=== PATIENT | female | born 1990 | race Caucasian/White ===

== ENCOUNTER 2017-02-18 09:13 | Emergency (ER) | payer MEDICAID, OTHER ==
[~2017-02-18] VITALS: Ht 170.2 cm; Wt 77.0 kg
[~2017-02-18 09:13] MED LIST: GUAI600 PO
[2017-02-18 09:21] VITALS: BP 117/65; PULSE 84; RESP 16; TEMP 98.1; O2SAT 98
[2017-02-18] MEDS ORDERED: MAGICADU2 SWISH-SWAL (09:58)
--- NOTE | 2017-02-18 10:00 | PD ---
HPI Chief Complaint: ENT Complaint Time Seen by Provider: 09:40 Travel History International Travel<30 days: No Contact w/Intl Traveler<30days: No Traveled to known affect area: No History of Present Illness HPI The patient was seen and examined in the presence of the nurse. Patient complains of sore throat and ear pain and runny nose and congestion. No fever. Symptoms severity is mild to moderate PFSH Past Medical History Medical History: Denies Significant Hx Diabetes: No Diminished Hearing: No Immunizations Current: Yes Tetanus Vaccination: > 5 Years Influenza Vaccination: No ?: Not Past Surgical History Other Surgery: Yes (ORAL) Social History Alcohol Use: No Tobacco Use: No Substance Use: No Allergies-Medications (Allergen,Severity, Reaction): Coded Allergies: No Known Allergies (Verified , 02/18/17) Reported Meds & Prescriptions Reported Meds & Active Scripts Active No Active Prescriptions or Reported Medications Review of Systems General / Constitutional: No: Fever HENT: No: Headaches Cardiovascular: No: Chest Pain or Discomfort Physical Exam Narrative RESPIRATORY: Respiratory effort unlabored, no retractions or use of accessory muscles. Breath sounds are clear and symmetric. SKIN: Focused skin assessment reveals no rash or ulcers. Skin is warm and dry. Palpation shows no induration or nodules. NECK: Symmetrical appearance, midline trachea. No mass or crepitus. Thyroid without enlargement, tenderness, or mass. TMs normal Throat shows minor erythema without exudate. Uvula midline Nares full of rhinorrhea Data Data Last Documented VS Vital Signs Date Time Temp Pulse Resp B/P Pulse Ox O2 Delivery O2 Flow Rate FiO2 02/18/17 09:21 98.1 84 16 117/65 98 MDM Medical Decision Making Medical Screen Exam Complete: Yes Emergency Medical Condition: Yes Medical Record Reviewed: Yes Differential Diagnosis Bronchitis, URI, pharyngitis Narrative Course I have reviewed the patient's electronic medical record. Presentation here most consistent with acute viral respiratory illness. She has cough and runny nose and congestion, a lot of viral symptoms. No indication for throat culture Supportive care discussed and Magic mouth was prescribed for symptom relief Diagnosis Primary Impression: Acute viral syndrome Additional Impression: Sore throat (viral) Additional Instructions: The patient was advised to follow up with their physician and return if they worsen. The patient was warned about potential sedation for the medications they will receive on prescription. Med/Other Pt SpecificInfo: Prescription(s) given Scripts Njuqqdzk-Mtpzlbwjeouoigp-Kmokoblqb Liq (Magic Mouthwash Adult Liq)120 Ml Susp10 Ml SWISH-SWAL ACHS #120 ML Ref 0 Each 5mL contains: Nystatin 200,000units, Diphenhydramine 4.25mg, Viscous Lidocaine 10mg, Dobbs syrup 0.8 mL Prov:John Carey MD 02/18/17 Disposition: 01 DISCHARGE HOME Condition: Stable John Carey MD Feb 18, 2017 10:00
== END 2017-02-18 10:06 | disposition home or self-care (01) ==
LOC: PHED 09:13
DX: B34.9 Viral infection, unspecified (principal)
CPT/HCPCS: 99283